=== PATIENT | female | born 2000 | race American Indian/Alaskan Native ===

== ENCOUNTER 2021-04-27 17:43 | Emergency (ER) | payer OTHER ==
[2021-04-27 17:53] VITALS: BP 96/67
--- NOTE | 2021-04-27 18:34 | Emergency Department Report ---
ED General Adult HPI - General Chief complaint: Dental/Oral Stated complaint: RT EAR RT JAW AND NECK PAIN Time Seen by Provider: 04/27/21 18:20 Source: patient Mode of arrival: Ambulatory Limitations: No Limitations - History of Present Illness Initial comments: Patient is a 20-year-old female presents emergency room with complaints of right jaw pain that began 5 months ago. She states the pain radiates to her right ear and to her right neck. Patient states that she last saw a dentist a year ago and was advised that she needed to have a wisdom tooth removed but reports that she never followed back up. She denies any specific dental pain. She denies any fever, nausea, vomiting, diarrhea, vision changes. She states her pain is worse with chewing and movement of the jaw. No past medical history. No allergies to medications. She states her last menstrual cycle was 04/03/2021, she denies any possibility of . Severity scale (0 -10): 4 - Related Data Previous Rx's Medication Instructions Recorded Last Taken Type Naproxen 375 mg PO BID PRN #20 tablet 04/27/21 Unknown Rx Prednisone [predniSONE 10 mg 10 mg PO .TAPER #1 tab.ds.pk 04/27/21 Unknown Rx (6-Day Pack, 21 Tabs)] Allergies Allergy/AdvReac Type Severity Reaction Status Date / Time No Known Allergies Allergy Unverified 04/27/21 17:54 ED Review of Systems ROS: Stated complaint: RT EAR RT JAW AND NECK PAIN Other details as noted in HPI Comment: All other systems reviewed and negative ED Past Medical Hx - Past Medical History Previous Medical History?: No - Surgical History Past Surgical History?: No - Medications Home Medications: Home Medications Medication Instructions Recorded Confirmed Last Taken Type Naproxen 375 mg PO BID PRN #20 tablet 04/27/21 Unknown Rx Prednisone [predniSONE 10 mg 10 mg PO .TAPER #1 tab.ds.pk 04/27/21 Unknown Rx (6-Day Pack, 21 Tabs)] ED Physical Exam - General Limitations: No Limitations General appearance: alert, in no apparent distress - Head Head exam: Present: atraumatic, normocephalic - Eye Eye exam: Present: normal appearance - ENT ENT exam: Present: normal orophraynx, mucous membranes moist, TM's normal bilaterally, normal external ear exam, other (ttp to the right TMJ with pain upon movement, no edema, no dental trauma, no gum edema) - Respiratory Respiratory exam: Present: normal lung sounds bilaterally. Absent: respiratory distress, wheezes, rales, rhonchi, stridor, chest wall tenderness, accessory muscle use, decreased breath sounds, prolonged expiratory - Cardiovascular Cardiovascular Exam: Present: regular rate, normal rhythm, normal heart sounds. Absent: systolic murmur, diastolic murmur, rubs, gallop - Neurological Exam Neurological exam: Present: alert, oriented X3 - Psychiatric Psychiatric exam: Present: normal affect, normal mood - Skin Skin exam: Present: warm, dry, intact ED Course Vital Signs 04/27/21 17:51 Temperature 99.4 F Pulse Rate 88 Respiratory 18 Rate Blood Pressure 96/67 [Left] O2 Sat by Pulse 99 Oximetry ED Medical Decision Making - Medical Decision Making Patient is a 20-year-old female presents emergency room with complaints of right jaw pain that began 5 months ago. She states the pain radiates to her right ear and to her right neck. Patient states that she last saw a dentist a year ago and was advised that she needed to have a wisdom tooth removed but reports that she never followed back up. She denies any specific dental pain. She denies any fever, nausea, vomiting, diarrhea, vision changes. She states her pain is worse with chewing and movement of the jaw. No past medical history. No allergies to medications. She states her last menstrual cycle was 04/03/2021, she denies any possibility of . on exam: ttp to the right TMJ with pain upon movement, no edema, no dental trauma, no gum edema. Examination appears likely consistent with TMJ, patient could also be having referred pain from the wisdom tooth that she needs to have extracted, there is no signs of dental infection or dental abscess. No signs of facial cellulitis or facial abscess. No signs of parotitis. Patient given prescription for medication. Advised patient to follow-up with ENT and dental. Advised patient Please take medication as prescribed. Follow-up with a dentist. Follow-up with a wearing apparel presser. Return to emergency room for any new or worsening symptoms. Critical care attestation.: If time is entered above; I have spent that time in minutes in the direct care of this critically ill patient, excluding procedure time. ED Disposition Clinical Impression: Jaw pain Disposition: HOME / SELF CARE / HOMELESS Is pt being admited?: No Does the pt Need Aspirin: No Condition: Stable Instructions: Temporomandibular Joint Syndrome Additional Instructions: Please take medication as prescribed. Follow-up with a dentist. Follow-up with a wearing apparel presser. Return to emergency room for any new or worsening symptoms. Prescriptions: Naproxen 375 mg PO BID PRN #20 tablet PRN Reason: pain Prednisone [predniSONE 10 mg (6-Day Pack, 21 Tabs)] 10 mg PO .TAPER #1 tab.ds.pk Referrals: ALEJANDRO MCHUGH MD [Staff Physician] - 3-5 Days CANDIDO VARELA MD [Referring] - 3-5 Days a, dentist [Other] - 3-5 Days Time of Disposition: 18:32 Print Language: ARABIC
== END 2021-04-27 19:30 | disposition home or self-care (01) ==
LOC: ED 17:43
DX: R68.84 Jaw pain (principal)
CPT/HCPCS: 99281